=== PATIENT | male | born 1965 | race Caucasian/White ===

== ENCOUNTER 2017-07-05 06:31 | Day surgery (SDC) | payer OTHER ==
[2017-07-05] MEDS ORDERED: Bupivacaine 0.5% 50 ML MDV ONE (06:54)
[2017-07-05] MEDS ORDERED: Lidocaine 1% with EPINEPHrine 1:100,000 50 ML MDV ONE (06:54)
[2017-07-05] MEDS ORDERED: Dextrose 5%-Lactated Ringers 1,000 ML IV SCH (07:15)
[2017-07-05] MEDS ORDERED: Propofol 200 MG/20 ML SDV ONE (07:24)
[2017-07-05] MEDS ORDERED: fentaNYL 100 MCG/2 ML SDV ONE ×2 (07:26→07:27)
[2017-07-05] MEDS ORDERED: Midazolam 1 MG/ML 2 ML SDV ONE (07:27)
[2017-07-05] MEDS ORDERED: Lidocaine 0.5% 50 ML SDV ONE (07:30)
[2017-07-05] MEDS ORDERED: ceFAZolin 2 GM in Sodium Chloride 0.9% 50 ML IV ONE ×2 (07:30→07:45)
[2017-07-05] MEDS ORDERED: ceFAZolin 2 GM in Premix Bag 1 BAG IV ONE (07:45)
[2017-07-05 09:12] VITALS: BP 124/70
[2017-07-05] MEDS ORDERED: Acetaminophen/HYDROcodone 325-5 MG Tab PO PRN (09:15)
--- NOTE | 2017-07-10 14:13 | OR ---
DATE OF PROCEDURE: 07/05/2017 PREOPERATIVE DIAGNOSIS: Ganglion cyst, dorsum of left wrist. POSTOPERATIVE DIAGNOSIS: Ganglion cyst, dorsum of left wrist. PROCEDURE: Excision of the ganglion cyst on the dorsum of left wrist (08310). ANESTHESIA: IV block plus sedation. INDICATION FOR PROCEDURE: A 51-year-old presenting with a large ganglion cyst over the dorsum of left wrist. This is more or less over the base of the thumb and the snuff box area. Plan is to proceed with excision of this. Potential risks including bleeding, infection, injury to the radial nerve branches resulting in possible areas of anesthesia distal to the incision and area of dissection were reviewed, possible recurrence of the cyst were all reviewed, and the patient wishes to proceed. DETAILS OF PROCEDURE: The patient was taken to the operating room and placed in a supine position. IV sedation was administered after which an IV block was placed affecting the left forearm and hand. Those areas were then prepped and draped. A transversally oriented incision was then made over the center of the ganglion incision. It was carried down through the skin and subcutaneous tissue and additional soft tissue layers encountered. This was dissected free of the surrounding soft tissues. The overlying soft tissue and possibly nerve branches were then dissected medial and laterally to the extent possible. The cyst was then intentionally opened at this point and the contents evacuated. This facilitated further dissection from the surrounding soft tissues down to the level of the joint where it was excised. The point where the cyst emerged from the joint was then extensively cauterized to facilitate scarring in that area. Two layers of 4-0 Vicryl [id number] stitches were then placed closing the soft tissues over the area of dissection and the skin then closed with a 4-0 Vicryl subcuticular stitch. Dressing was applied. The patient was taken to the recovery room in satisfactory condition. There were no evident complications. Kranthi Richardson MD /[id number]
== END 2017-07-05 09:34 | disposition home or self-care (01) ==
LOC: JP.SDS 06:31
PROVIDERS: ATTEND Surgery
DX: M67.432 Ganglion, left wrist (principal); E78.00 Pure hypercholesterolemia, unspecified
CPT/HCPCS: 25111; 88304; A9270; J0690; J2250; J2704; J3010; J7042; J7050

== ENCOUNTER 2024-07-24 07:21 | Day surgery (SDC) | payer OTHER ==
[2024-07-24] MEDS: Sodium Chloride 0.9% 1,000 ML IV SCH (08:04)
[2024-07-24] MEDS ORDERED: fentaNYL 50 MCG/ML SDV ONE (08:37)
[2024-07-24] MEDS ORDERED: Propofol 200 MG/20 ML SDV ONE (08:37)
[2024-07-24] MEDS ORDERED: Midazolam 1 MG/ML 2 ML SDV ONE (08:37)
[2024-07-24 10:42] VITALS: BP 125/68; PULSE 67
== END 2024-07-24 10:55 | disposition home or self-care (01) ==
LOC: JP.SDS 07:21
PROVIDERS: ATTEND Surgery
DX: Z12.11 Encounter for screening for malignant neoplasm of colon (principal); D12.5 Benign neoplasm of sigmoid colon; I10 Essential (primary) hypertension
CPT/HCPCS: 45385; 88305; J2250; J2704; J3010; J7030; 00811-QZ